=== PATIENT | male | born 1940 | race Caucasian/White ===

== ENCOUNTER → 2016-11-15 | Outpatient (CLI) | payer MEDICARE, MEDICAID ==
[~2016-11-15] MED LIST: AMLO5TAB PO; ATORVASTATIN CA40 MG PO; BIAXIN500 MG PO; CLOPIDOGREL75 M2 PO; HYDROCHLOROTHIA25 M1 PO; LISINOPRIL10 MG PO; NITROGLYCERIN0.4 MG SL; TAMSULOSIN HYD0.4 M1 PO
--- NOTE | 2016-11-16 10:48 | RADIOLOGY REPORT PS360 ---
MRI-BRAIN W/O ORDERING PHYSICIAN : Sky Delvalle MD PATIENT AGE: 76 years GENDER: Male INDICATION: LATERAL RECTUS PALSY, RIGHT ] On Flomax. 6 months. Patient with dizziness and blurred vision. Doesn't seem to know which I is blurry.. 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 Also has some headaches. TECHNIQUE: Noncontrast Multiplanar FLAIR, T1, T2 weighted images along with axial diffusion/ADC imaging performed on 1.5 T. Siemens, MRI. . Patient refused IV contrast. COMPARISON: CT head without contrast 07/10/2007 FINDINGS No acute infarct. No territorial infarct. Prominent Diffuse cerebral atrophy., advanced for age. This atrophy particularly striking on the coronal view and sagittal view were we see a very prominent CSF space overlying the atrophic cerebral hemispheres. However it has a homogeneous CSF density and does not appear to be an old extra-axial collection. No membrane evident either to support extra-axial collection, ( although would note that contrast is helpful to further exclude such) Mild prominence of the lateral ventricles reflect the cerebral atrophy.. . No extra-axial collections. No territorial infarct. No mass lesion or mass effect. Survey images through the at the level of of the [place] reveals no prominent findings. No obvious aneurysm. A few scattered high signal foci in deep white matter, most evident superior on right... These deep white matter foci are less evident and fewer than often seen for this age patient. These most likely reflect reflect microangiopathic ischemic gliotic changes . Only minor atrophy of the cerebellum and posterior fossa elements. . Mastoid air cells unremarkable. IACs and CP angles unremarkable. Cranial cervical junction appears normal.. Sella appears normal. Suprasellar cistern appears normal. Normal flow-voids dural venous sinuses.. Maxillary sinuses: trace diffuse mucosal thickening with Slight lobulated mucosal thickening & retention cysts at the floor of right and left maxillary sinus.. Ethmoid air cells:. generous mucosal thickening and opacification. Sphenoid sinuses unremarkable. Frontal sinuses: with mild diffuse mucosal thickening. . Orbits unremarkable Generous sigmoid deviation Nasal Septum. -Most notable is the convexity to left narrowing the left nasal airway., & distorting the middle nasal turbinates.. There is also 17 mm polypoid lesion at the posterior aspect of the nasopharynx... Polyp versus could merely be focal collection mucoid material.. Suggest CT sinuses to further evaluate and/or ENT follow-up for further evaluation of the ENT observations.. --------IMPRESSION: 1. Prominent, Advanced Diffuse Cerebral Atrophy - but with no territorial infarct. No focal lesions nor areas of atrophy. . Mild atrophy of the cerebellum as well . 2. Only Minimal chronic small vessel deep white matter ischemic/gliotic changes most evident at right cerebral hemisphere. 3. Paranasal sinus disease. Bilateral moderate ethmoid sinusitis most most notable. 4. Prominent deviation nasal septum. 5. Also note 17 mm focal polypoid density posterior right nasopharynx. Polyp vs collection of mucoid material Consider CT sinuses or ENT evaluation for these latter observations
== END ==
LOC: RAD 10-19 11:00
DX: H49.21 Sixth [abducent] nerve palsy, right eye (principal)